=== PATIENT | male | born 1950 | race Caucasian/White ===

== ENCOUNTER 2019-12-10 12:23 | Outpatient (CLI) | payer MEDICARE, OTHER, SELFPAY ==
--- NOTE | 2019-12-10 12:25 | CT_ITS ---
WS: [id number] CT ABDOMEN PELVIS TECHNIQUE: Contrast-enhanced CT of the abdomen and pelvis with coronal and sagittal reformatted image s. CLINICAL INFORMATION: RECTAL CANCER COMPARISON: CT April 17, 2019 October 08, 2018. PET/CT March 31, 2018. Multiple additional CTs da ting back to 2017 DLP: 1163.[address] scans at [facility] use at least one of these dose optimization techniques: automat ed exposure control; mA and/or kV adjustment per patient size (includes targeted exams where dose is matched to clinical indication); or iterative reconstruction. FINDINGS: Hepatomegaly with diffuse fatty infiltration. No intrahepatic biliary ductal dilatation. Gallbladder is normal. Normal GE junction. Lung bases are well aerated. Portal vein and splenic vein are patent. Normal gallbladder. Adrenal glands are normal. Normal spleen. Normal gastroesophageal junction. Visua lized pancreas is normal. No hydronephrosis. Aortic calcification. Normal caliber abdominal aorta. Prior postoperative changes left lower quadrant colostomy with sigmoid resection. Unchanged small bow el parastomal hernia with a herniated small bowel loop. No evidence of strangulation or obstruction. This is unchanged since the prior examination. Presacral and precoccygeal soft tissue thickening similar in appearance to the prior examinations. No evidence of progressive disease. No periaortic or retroperitoneal lymphadenopathy. CT/CT abdomen pelvis w con* [id number] IMPRESSION: 1. No evidence of new or progressed metastatic disease in the abdomen or pelvi s. 2. Stable presacral and precoccygeal soft tissue thickening due to postoperati ve and treatment-related changes are stable 3. No periaortic or inguinal lymphadenopathy.. 4. Prior sigmoid resection with stable left lower quadrant colostomy with para stomal small bowel hernia. No evidence of obstruction. This is stable in appear ance.
[2019-12-10] MEDS: iohexol 300 mg/mL 100 mL Btl IV (14:48)
[2019-12-10] MEDS: iohexol 300 mg/mL 50 mL Btl PO (14:49)
== END 2019-12-10 12:24 | disposition home or self-care (01) ==
PROVIDERS: Family Provider Family Medicine; Visit Provider Radiology Radiation Oncology
DX: C20 Malignant neoplasm of rectum (principal)
CPT/HCPCS: 74177; 82565; 84520; Q9967

== ENCOUNTER 2019-12-16 08:45 | Outpatient (CLI) | payer MEDICARE, OTHER, SELFPAY ==
--- NOTE | 2019-12-16 11:56 | ONCRAD EPV_ITS ---
Radiation Oncology Established Patient Visit Patient: John MR#: [id number] : 1950> Age: 69> Sex: Male> Dictated by: Dr. Lazaro Weldon Date of Service: 12/16/2019 Referring Physician(s) : Dr. 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 ID: [id number], Energy: 6X, Dose/Fx (cGy): 180, #Fx: 6 / 6, Dose Correction (cGy): 0, Total Dose (cGy): 1,080, Start Date: 10/06/2016, End Date: 10/13/2016, Elapsed Days: 7 Treatment Site: RECTUM [id number], Ref. ID: [id number], Energy: 6X, Dose/Fx (cGy): 180, #Fx: 25 / 25, Dose Correction (cGy): 0, Total Dose (cGy): 4,500, Start Date: 09/01/2016, End Date: 10/05/2016, Elapsed Days: 34 Chief Complaint / History of Present Illness: Currently he is doing well overall. He is eating well with good appetite. He has good stable weight. He has normal energy level and is involved in gardening and mowing his lawn. He has normal stoma function he has tiny blood loss at the ostomy site which is stable and felt to be normal from his surgeon's previous evaluation. He has previous colonoscopy in 2018 and is scheduled for another reexamination in 2021 CT scan of the abdomen and pelvis from December 10, 2019 was unchanged there was hepatomegaly with diffuse fatty infiltration of the liver no liver metastases. No ascites. No retroperitoneal or pelvic adenopathy presacral and pre-coccygeal soft tissue thickening similar to prior exam unchanged small bowel parastomal hernia with herniated small bowel loops extending out of the abdominal cavity into the anterior abdominal wall around the stoma. No evidence for strangulation or obstruction unchanged from previous examinations. Current Medications: Metoprolol Tartrate. Allergies: No Known Allergies Current Complaints / Review of Systems: Constitutional - Denies lack of appetite, fatigue, fever, night sweats and change in weight. Eyes - Denies blurred vision and double vision. ENMT - Denies dysphagia, ear pain, problems with hearing, mouth dryness, stomatitis, altered taste and tinnitus. Neck - Denies neck pain. Integumentary - Denies rash. Cardiovascular - Denies arrhythmias, chest pain and edema. Respiratory - Denies cough, dyspnea and wheezing. Gastrointestinal - Denies abdominal pain, heartburn / dyspepsia, nausea and vomiting. Has colostomy and bowel movements are normal. Genitourinary (M) - Complains of nocturia gets up 1 time per night. Denies dysuria, frequency and urgency. Musculoskeletal - Complains of joint pain in the left knee. Denies bone pain and muscle weakness. Neurologic - Denies dizziness and headaches. Endocrine - Denies diabetes and thyroid disease. Hematologic/Lymphatic - Denies tender or enlarged lymph nodes.. Vital Signs: Performed on 12/16/2019 9:59 AM BMI - 30.923 kg/m2 (high), Height - 75.00 in, Weight - 247.4 lbs, Temperature - 97.2 f, Pulse - 52, Respiration - 18, O2 Sat - 98 %, Pain - 2 and BP - 156/ 81 mm(hg)(high/). Physical Exam: General: Alert and oriented x 3. No acute distress. Robust appearing gentleman in no acute distress. Abdominal examination revealed a healthy stoma with pink mucosa left lower quadrant no obvious hernia formation around the stoma nontender abdominal examination. Extremities revealed no pedal edema. Performance Status: 100 Lab: None pending. Pathology: Primary, c20 - malignant neoplasm of rectum, Diagnosed 08/19/2016 (active) stage i, t2, n0, m0. Imaging: See HPI Impression: In summary my impression is that of stage I adenocarcinoma the rectum. He has done well with preoperative treatment followed by surgical resection. He does have a persistent asymptomatic parastomal hernia with small bowel extending into the hernia. He is asymptomatic for this. Nonetheless I would like his surgeon to review his recent CT scan to advise on any recommendation for proactive surgical correction of this hernia versus ongoing careful observation which has been the course pursued since surgery. I would like this his surgeon to review the CT scan and discussed observation or elective hernia repair with the patient by phone. We have now released him from our follow-up. He will continue to have colonoscopy as scheduled with the next elective colonoscopy occurring in 2021. Signed by: 12/16/2019 11:55:22 AM <<Signature on File>> Time spent with patient: CPT Code: CPT Code:
== END 2019-12-16 08:46 | disposition home or self-care (01) ==
LOC: ONCMED 08:48
PROVIDERS: Visit Provider Radiology Radiation Oncology
DX: C20 Malignant neoplasm of rectum (principal); K43.5 Parastomal hernia without obstruction or gangrene
CPT/HCPCS: 99214

== ENCOUNTER 2021-09-23 06:00 | Outpatient (RCR) | payer MEDICARE, OTHER, SELFPAY | END 2021-10-14 23:59 | disposition home or self-care (01) | LOC: SPT 06:00 | PROVIDERS: Referring Provider Orthopaedic Surgery; Visit Provider Orthopaedic Surgery | DX: M17.12 Unilateral primary osteoarthritis, left knee (principal) | CPT/HCPCS: 97110; 97116; 97161; G0283 ==

== ENCOUNTER 2021-10-15 06:00 | Outpatient (RCR) | payer MEDICARE, OTHER, SELFPAY | END 2021-10-28 23:59 | disposition home or self-care (01) | LOC: SPT 06:00 | PROVIDERS: Referring Provider Orthopaedic Surgery; Visit Provider Orthopaedic Surgery | DX: M17.12 Unilateral primary osteoarthritis, left knee (principal) | CPT/HCPCS: 97110 ==